=== PATIENT | female | born 1990 | race Caucasian/White ===

== ENCOUNTER 2020-03-22 17:15 | Emergency (ER) | payer SELFPAY ==
[~2020-03-22] VITALS: Ht 154.9 cm; Wt 88.9 kg
[2020-03-22 17:27] VITALS: Ht 154.9 cm; Wt 88.9 kg
[2020-03-22 18:11] VITALS: BP 165/90
== END 2020-03-22 18:11 | disposition home or self-care (01) ==
LOC: ED 17:15
DX: F41.0 Panic disorder [episodic paroxysmal anxiety] (principal)
CPT/HCPCS: G0480

== ENCOUNTER 2020-04-10 09:34 | Emergency (ER) | payer SELFPAY ==
[~2020-04-10] VITALS: Ht 154.9 cm; Wt 89.4 kg
[2020-04-10 09:37] VITALS: Ht 154.9 cm; Wt 89.4 kg
[2020-04-10 11:01] VITALS: BP 135/78
== END 2020-04-10 11:01 | disposition home or self-care (01) ==
LOC: ED 09:34
DX: R07.89 Other chest pain (principal); R10.30 Lower abdominal pain, unspecified; R03.0 Elevated blood-pressure reading, without diagnosis of hypertension; G43.909 Migraine, unspecified, not intractable, without status migrainosus

== ENCOUNTER 2020-04-15 17:18 | Emergency (ER) | payer SELFPAY ==
[~2020-04-15] VITALS: Ht 154.9 cm; Wt 87.1 kg
[2020-04-15 17:32] VITALS: Ht 154.9 cm; Wt 87.1 kg
[2020-04-15 18:34] VITALS: BP 129/68
== END 2020-04-15 18:34 | disposition home or self-care (01) ==
LOC: ED 17:18
DX: F41.0 Panic disorder [episodic paroxysmal anxiety] (principal); G43.909 Migraine, unspecified, not intractable, without status migrainosus
CPT/HCPCS: 83880; 84439; J2060

== ENCOUNTER 2020-05-05 09:36 | Emergency (ER) | payer MEDICAID ==
[~2020-05-05] VITALS: Ht 154.9 cm; Wt 86.6 kg
[2020-05-05 09:42] VITALS: Ht 154.9 cm; Wt 86.6 kg
[2020-05-05 11:59] VITALS: BP 126/76
== END 2020-05-05 11:59 | disposition home or self-care (01) ==
LOC: ED 09:36
DX: F41.9 Anxiety disorder, unspecified (principal); G43.909 Migraine, unspecified, not intractable, without status migrainosus

== ENCOUNTER 2020-05-17 08:15 | Emergency (ER) | payer MEDICAID ==
[~2020-05-17] VITALS: Ht 154.9 cm; Wt 87.1 kg
[2020-05-17 09:59] VITALS: Ht 154.9 cm; Wt 87.1 kg
[2020-05-17 11:10] LABS: BASOPHIL % 0.4 % (0-2); PLATELET COUNT 326 x10^3mcL (130-400); RED CELL DISTRIBUTION WIDTH 13.1 % (11.5-14.5)
[2020-05-17 11:35] LABS: CALCIUM 8.8 mg/dL (8.5-10.1); CARBON DIOXIDE 29.6 mmol/L (21-32); CHLORIDE SERUM 103 mmol/L (98-107); CREATININE SERUM 0.7 mg/dL (0.6-1.0); GFR1 > 60 mL/min; GLUCOSE SERUM 87 mg/dL (74-106); POTASSIUM SERUM 4.2 mmol/L (3.5-5.1); SODIUM SERUM 139 mmol/L (136-145)
[2020-05-17 11:40] LABS: ALBUMIN 3.9 g/dL (3.4-5.0); ALKALINE PHOSPHATASE 68 U/L (46-116); ALT/SGPT 48 U/L (14-59); AST/SGOT 28 U/L (15-37); BILIRUBIN TOTAL 0.3 mg/dL (0.20-1.00); TOTAL PROTEIN, SERUM 7.3 g/dL (6.4-8.2)
[2020-05-17 12:07] VITALS: BP 122/76
== END 2020-05-17 12:07 | disposition home or self-care (01) ==
LOC: ED 08:15
PROVIDERS: Emergency Medicine
DX: N39.0 Urinary tract infection, site not specified (principal); R42 Dizziness and giddiness